=== PATIENT | female | born 1995 | race Caucasian/White ===

== ENCOUNTER 2020-06-06 19:36 | Emergency (ER) | payer OTHER, MEDICAID ==
[~2020-06-06] VITALS: Ht 165.1 cm; Wt 73.2 kg
--- NOTE | 2020-06-06 20:23 | PHYS DOC ---
Past History Past Medical History: GERD Alcohol Use: None Adult General Chief Complaint Chief Complaint: NAUSEA/VOMITING/[facility] HPI Patient is a 25-year-old female presents to the emergency department complaining of nausea and vomiting since approximately 2 AM. Patient states that she has vomited approximately 6-8 times. Patient states her vomitus is either clear or yellow. Patient states that she is currently , has an EDC of August 14, but patient states that she is 30 weeks 2 days . Patient reports she has had no problems with her , she can feel the baby move, and she has no worries about her baby being sick, patient states that she has had no vaginal discharge, and has had no breaking of her water. Patient denies fever or chills at home, denies nasal congestion, shortness of breath. Patient denies chest pain, abdominal pain, constipation or seeing blood in her stools. Patient denies any dysuria, vaginal discharge, or STI concerns. Patient denies any back pains, pain in her joints, skin rashes, headaches, focal weaknesses or sensory changes. Patient denies fatigue, generalized muscle aches, loss of taste or smell. Patient denies patient states other than her , no one else is ill in her home. This would include her 2 daughters. Patient is a G4, P2 SAB 1, patient states that her second ended in a miscarriage at 7 weeks. Patient reports she has had no problems with this . Review of Systems Review of Systems Constitutional: Denies fever or chills Eyes: Denies change in visual acuity, redness, or eye pain HENT: Denies nasal congestion or sore throat Respiratory: Denies cough or shortness of breath Cardiovascular: No additional information not addressed in HPI GI: Denies abdominal pain, constipation, bloody stools or diarrhea complains of nausea vomiting since 2 AM this morning. : Denies dysuria or hematuria Musculoskeletal: Denies back pain or joint pain Integument: Denies rash or skin lesions Neurologic: Denies headache, focal weakness or sensory changes Endocrine: Denies polyuria or polydipsia All other systems were reviewed and found to be within normal limits, except as documented in this note. Current Medications Current Medications Patient states he takes a vitamin at home Allergies Allergies Allergies Coded Allergies Type Severity Reaction Last Updated Verified No Known Drug Allergies 06/06/20 No Physical Exam Physical Exam Constitutional: Well developed, well nourished, no acute distress, non-toxic appearance. HENT: Normocephalic, atraumatic, bilateral external ears normal, oropharynx moist, no oral exudates, nose normal. Eyes: PERRLA, EOMI, conjunctiva normal, no discharge. Neck: Normal range of motion, no tenderness, supple, no stridor. Cardiovascular:Heart rate regular rhythm, no murmur Lungs & Thorax: Bilateral breath sounds clear to auscultation Abdomen: Bowel sounds normal, soft, no tenderness, no masses, no pulsatile masses. Skin: Warm, dry, no erythema, no rash. Back: No tenderness, no CVA tenderness. Extremities: No tenderness, no cyanosis, no clubbing, ROM intact, no edema. Neurologic: Alert and oriented X 3, normal motor function, normal sensory function, no focal deficits noted. Psychologic: Affect normal, judgement normal, mood normal. Gynecological: Fundus is approximately 10 cm above umbilicus, heart tones 160. Current Patient Data Vital Signs Vital Signs Date Time Temp Pulse Resp B/P (MAP) Pulse Ox O2 Delivery O2 Flow Rate FiO2 06/06/20 19:46 99.1 142 18 154/70 (98) 100 Room Air EKG EKG [] Radiology/Procedures Radiology/Procedures [] Heart Score Risk Factors: Risk Factors: DM, Current or recent (<one month) smoker, HTN, HLP, family history of CAD, obesity. Risk Scores: Risk Factors: DM, Current or recent (<one month) smoker, HTN, HLP, family history of CAD, obesity. Course & Med Decision Making Course & Med Decision Making Pertinent Labs and Imaging studies reviewed. (See chart for details) Patient reports emergency department complaint of nausea vomiting since 2 AM. Patient states that she vomited approximately 6 times prior to arrival. Patient is concerned that she might have the Covid virus as her is also ill at home and was tested today. The patient is 30 weeks 2 days per EDC, patient denies any problems with her , patient states she can feel the baby move, patient states she is not worried about her . The heart tones were 160 per bedside Doppler. In ER work-up consisted of an IV line started, normal saline 1 L wide open, for milligrams of IV Zofran for nausea. Labs were taken as well the patient's labs were equivocal, did not show an infectious process. On reexamination of the patient patient states that she has a mild headache and still felt just slightly nauseated. Patient was ordered to 5/325 [place]'s, and an additional liter of saline. Reexamination of the patient, patient states her pain is now about a 1, patient states she feels much better. Patient's vital signs are stable however her heart rate is just slightly tachycardic at 110. There is approximately 600 cc of saline left in her IV bag, discussed with patient will finish out her normal saline, patient will be sent home without any medications prescribed. Patient is to call her OB doctor tomorrow, have a rapid Covid test done, discussed COVID-19 precautions at home. Patient gave verbal understanding of discharge home instructions, return to ER precautions, patient had no further questions or concerns, patient discharged home without incident. Diagnosis of COVID-19 PUI, vomiting was not observed during ER stay, this is most likely a fear of COVID-19 infection. Currently this emergency department is out of Covid 19 rapid testing, is recommended to the patient that she go to the nearest tested facility tomorrow morning to be tested for the COVID-19 viru sSkip Tobar Disclaimer Dragon Disclaimer This electronic medical record was generated, in whole or in part, using a voice recognition dictation system. Departure Departure: Impression: Primary Impression: Person under investigation for COVID-19 Additional Impressions: Educated about COVID-19 virus infection Nausea & vomiting Disposition: 01 DC HOME SELF CARE/HOMELESS Condition: IMPROVED Referrals: PAOLO BRENNAN MD (PCP) Patient Instructions: Nausea and Vomiting Additional Instructions: Please return to the emergency department for worsening symptoms, please call your [employer]EM[employer]ON HELPER tomorrow and tell her you may have the COVID-19 virus, tell your OB/ TECHNICAL CONSULTANT about your emergency department visit, please get tested at the [facility] Covid 19 testing facility, we have discussed COVID-19 precautions, COVID-19 instructions will be added to discharge instructions. You have been tested for or diagnosed with COVID-19. It is an infection caused by a new type of coronavirus. COVID-19 will cause cold-like or mild flu symptoms in most. It can cause more severe symptoms like problems breathing in some. There is no treatment for COVID-19. The body will clear the infection over time. Self-care will help to ease discomfort. Steps to Take: Self-Care Rest as needed. Healthy habits may help you feel better. Steps include: Choose healthy foods including fruits and vegetables. Drink water throughout the day. Get plenty of sleep each night. If you smoke, try to quit. It may ease breathing. Avoid alcohol. Keep Others Healthy The virus can spread to others. Droplets are released every time you sneeze or cough. The droplets can get into the mouth, nose, or eyes of people near you and lead to infection. To lower the chances of spreading COVID-19 to others: Stay at home until your doctor has said it is safe to leave. If you tested positive this will mean staying isolated until both of the following are true: At least 7 days have passed since the start of illness. You are free of fever for at least 72 hours without the use of medicine. During this time: - Avoid public areas, events, or transportation. Do not return to work or school until your doctor has said it is safe to do so. - Call ahead if you need to go to a medical center. Let them know you may have COVID-19. It will help them guide you where to go. They may also ask you to wear a facemask when you come to the office. - If you call for emergency medical services, let them know you may have COVID- 19. While at home: - Try to avoid close contact with others. Stay about 6 feet away. - If possible, spend most of your time in a separate room from others. - Use a face mask if you will be in close contact with others such as sharing a room or vehicle. - Have someone wipe down common surfaces in the home. Use household pocket grinder operator every day on areas like doorknobs, counters, or sinks. - Cough or sneeze into a tissue. Throw the tissue away right after use. If a tissue is not available, cough or sneeze into your elbow. - Wash your hands often. Wash them after sneezing or coughing. Use soap and water and wash for at least 20 seconds. Alcohol based hand bell cleaner can be used if soap and water is not available. - Do not prepare food for others. Avoid sharing personal items like forks, spoons, or toothbrushes. - Avoid close contact with pets while you are sick. There is no evidence of the virus passing to pets. This is a safety step until more is known about this virus. Isolation can be frustrating. Social interaction can help. Keep in touch with friends and family through phone and tech options. You can still interact with others in your home, just keep a safe distance of about 6 feet. Follow-up: Your doctors office will check in with you to see if there are any changes in your health. You may be asked to keep track of symptoms to share with them. They will also let you know when you are clear to be in public again. Problems to Look Out For: Contact your doctor if your recovery is not going as you expect. Get emergency care if you have problems such as: - Trouble breathing - Nonstop chest pain or pressure - Changes in awareness, confusion, or problems waking - Lips or face have bluish color - Worsening of symptoms If you think you have an emergency, call for emergency medical services right away. As taken from [facility] EMERGENCY DEPARTMENT GENERAL DISCHARGE INSTRUCTIONS Thank you for coming to [facility] (ED) today and trusting us with you care. We trust that you had a positivie experience in our Emergency Department. If you wish to speak to the department management, you may call the director at [phone]. YOUR FOLLOW UP INSTRUCTIONS ARE FOLLOWS: 1. Do you have a private Doctor? If you do not have a private doctor, please ask for a resource list of physicians or clinics that may be able to assist you with follow up care. 2. The Emergency Physician has interpreted your x-rays. The X-Ray specialist will also review them. If there is a change in the findings, you will be notified in 48 hours when at all possible. 3. A lab test or culture has been done, your results will be reviewed and you will be notified if you need a change in treatment. ADDITIONAL INSTRUCTIONS AND INFORMATION: 1. Your care today has been supervised by a physician who is specially trained in emergency care. Many problems require more than one evaluation for a complete diagnosis and treatment. We recommend that you schedule your follow up appointment as recommended to ensure complete treatment of you illness or injury. If you are unable to obtain follow up care and continue to have a problem, or if your condition worsens, we recommend that you return to the ED. 2. We are not able to safely determine your condition over the phone nor are we able to give sound medical advice over the phone. For these safety reasons, if you call for medical advice we will ask you to come to the ED for further evaluation. 3. If you have any questions regarding these discharge instructions please call the ED at [phone]. SAFETY INFORMATION: In the interest of safety, wellness, and injury prevention; we encourage you to wear your sealbelt, if you smoke; quite smoking, and we encourage family to use a protective helmet for bicycling and other sporting events that present an increased risk for head injury. IF YOUR SYMPTOMS WORSEN OR NEW SYMPTOMS DEVELOP, OR YOU HAVE CONCERNS ABOUT YOUR CONDITION; OR IF YOUR CONDITION WORSENS WHILE YOU ARE WAITING FOR YOUR FOLLOW UP APPOINTMENT; EITHER CONTACT YOUR PRIMARY CARE DOCTOR, THE PHYSICIAN WHOSE NAME AND NUMBER YOU WERE GIVEN, OR RETURN TO THE ED IMMEDIATELY. Problem Qualifiers Additional Impressions: Nausea & vomiting Vomiting type: bilious vomiting Qualified Codes: R11.14 - Bilious vomiting EFE FERRARA APRN Jun 06, 2020 20:23
[2020-06-06] MEDS ORDERED: ONDANSETRON PF 4 MG/2 ML VIAL. IVP ONE (20:30)
[2020-06-06] MEDS ORDERED: IV NORMAL SALINE 1,000ML 1,000 ML IV ONE ×2 (20:30→22:30)
[2020-06-06 21:04] LABS: BASO % 0 % (0-3); EOS % 0 % (0-3); HEMATOCRIT 38.2 % (36.0-47.0); HEMOGLOBIN 12.7 g/dL (12.0-15.5); LYMPH # 0.3 x10^3/uL (1.0-4.8); LYMPH % 4 % (24-48); MEAN CORPUSCULAR HEMOGLOBIN 30 pg (25-35); MEAN CORPUSCULAR HGB CONC 33 g/dL (31-37); MEAN CORPUSCULAR VOLUME 91 fL (79-100); MONO # 0.6 x10^3/uL (0.0-1.1); MONO % 8 % (0-9); NEUT # 7.3 x10^3uL (1.8-7.7); NEUT % 88 % (31-73); PLATELET COUNT 161 x10^3/uL (140-400); RED BLOOD COUNT 4.21 x10^6/uL (3.50-5.40); RED CELL DISTRIBUTION WIDTH 13.3 % (11.5-14.5); WHITE BLOOD COUNT 8.3 x10^3/uL (4.0-11.0)
[2020-06-06 21:13] LABS: CALCIUM 8.3 mg/dL (8.5-10.1); CREATININE 0.6 mg/dL (0.6-1.0); GFR 120.8; POTASSIUM 3.6 mmol/L (3.5-5.1)
[2020-06-06 21:19] LABS: ALBUMIN/GLOBULIN RATIO 0.8 (1.0-1.7); TOTAL BILIRUBIN 0.5 mg/dL (0.2-1.0)
[2020-06-06 21:21] LABS: BILIRUBIN,URINE NEG (NEG); CLARITY,URINE CLOUDY; COLOR,URINE AMBER; GLUCOSE,URINE NEG (NEG); NITRITE,URINE NEG (NEG); UROBILINOGEN,URINE 0.2 mg/dL (0.2 mg/dL)
[2020-06-06 21:22] LABS: BACTERIA,URINE MANY /HPF (0-FEW); RBC,URINE 0 /HPF (0-2); SQUAMOUS EPITHELIAL CELL,UR MOD /LPF; WBC,URINE 0 /HPF (0-4)
[2020-06-06] MEDS ORDERED: HYDROcodone/APAP 5/325MG 1 TAB TABLET PO ONE (22:15)
[2020-06-06 22:27] VITALS: BP 111/58
== END 2020-06-06 23:33 | disposition home or self-care (01) ==
LOC: ER 19:36
DX: O21.9 Vomiting of pregnancy, unspecified (principal); Z20.818 Contact with and (suspected) exposure to other bacterial communicable diseases; K21.9 Gastro-esophageal reflux disease without esophagitis; Z3A.30 30 weeks gestation of pregnancy
CPT/HCPCS: 36415; 80053; 81001; 83605; 85025; 87086; 96361; 96374; 99283; J2405; J7030